=== PATIENT | male | born 1960 | race Caucasian/White ===

== ENCOUNTER → 2020-09-20 | Day surgery (SDC) | payer OTHER ==
[~2020-09-20] VITALS: Ht 180.3 cm; Wt 92.7 kg
[~2020-09-20] MED LIST: ASPIR 8181 MG PO; NORCO 5-325 TA1 EACH PO; ONDANSETRON ODT8 MG PO
[2020-09-20 08:00] LABS: HCT 47.5 % (42.0-52.0); HGB 15.4 g/dl (13.2-18.0); MCH 30.4 pg (25.0-31.0); MCHC 32.4 g/dL (32.0-36.0); MCV 93.7 fL (78.0-100.0); MPV 9.6 fL (6.0-9.5); RBC 5.07 M/uL (4.70-6.00); RDW 14.6 % (11.5-14.0); WBC 9.1 K/uL (4.0-10.5)
[2020-09-20 08:27] LABS: ALBUMIN 3.8 g/dL (3.4-5.0); BILIRUBIN - TOTAL 0.5 mg/dL (0.2-1.0); BUN/CREAT RATIO (CALC) 25.4 RATIO; CREATININE 0.63 mg/dL (0.67-1.17); POTASSIUM 4.1 mmol/L (3.5-5.1); TOTAL PROTEIN 7.8 g/dL (6.4-8.2)
== END | disposition home or self-care (01) ==
LOC: FAS 07:12
PROVIDERS: Surgery
DX: D17.21 Benign lipomatous neoplasm of skin and subcutaneous tissue of right arm (principal); F17.210 Nicotine dependence, cigarettes, uncomplicated; K21.9 Gastro-esophageal reflux disease without esophagitis
CPT/HCPCS: 36415; 80053; J2250; J2405; J2704; J3010; J7120